=== PATIENT | male | born 1945 | race Caucasian/White ===

== ENCOUNTER 2020-02-09 08:23 | Outpatient (CLI) | payer MEDICARE, BC, SELFPAY ==
[2020-02-09 12:36] LABS: Anion Gap 8.4 mmol/L (3-11); BUN 18 mg/dL (7-18); CO2 26.6 mmol/L (21.0-32.0); CREATININE 1.07 mg/dL (0.70-1.30); Calcium 9.6 mg/dL (8.5-10.1); Chloride 103 mmol/L (98-107); Glucose 106 mg/dL (74-106); Potassium 3.6 mmol/L (3.5-5.1); Sodium 138 mmol/L (136-145)
== END 2020-02-09 08:43 ==
PROVIDERS: PCP Emergency Medicine; Visit Provider Emergency Medicine
DX: I10 Essential (primary) hypertension (principal)
CPT/HCPCS: 36415; 80048

== ENCOUNTER 2021-02-07 14:43 | Outpatient (REF) | payer MEDICARE, BC, SELFPAY ==
[2021-02-07 16:59] LABS: BUN 23 mg/dL (7-18); CREATININE 1.1 mg/dL (0.70-1.30); Calcium 9.7 mg/dL (8.5-10.1); Calculated LDL 131 mg/dL (<100); Chloride 104 mmol/L (98-107); Cholesterol 208 mg/dL (<200); Glucose 109 mg/dL (74-106); HDL Cholesterol 59 mg/dL (40-60); Potassium 3.3 mmol/L (3.5-5.1); Sodium 142 mmol/L (136-145); Triglyceride 92 mg/dL (<150)
== END 2021-02-07 14:44 | disposition home or self-care (01) ==
LOC: LBN 14:43
PROVIDERS: PCP Emergency Medicine; Visit Provider Emergency Medicine
DX: I10 Essential (primary) hypertension (principal)
CPT/HCPCS: 80048; 80061

== ENCOUNTER 2023-02-21 03:45 | Outpatient (CLI) | payer MEDICARE, BC, SELFPAY ==
[2023-02-21 13:13] LABS: CREATININE 1.1 mg/dL (0.70-1.30); Calculated LDL 105 mg/dL (<100); Cholesterol 180 mg/dL (<200); Estimated GFR 69.14 (mL/min/1.73m2); HDL Cholesterol 57 mg/dL (40-60); Potassium 3.2 mmol/L (3.5-5.1); Triglyceride 90 mg/dL (<150)
== END 2023-02-21 03:46 | disposition home or self-care (01) ==
LOC: LOS 03:45
PROVIDERS: PCP Nurse Practitioner Family; Visit Provider Nurse Practitioner Family
DX: E78.5 Hyperlipidemia, unspecified (principal); I10 Essential (primary) hypertension
CPT/HCPCS: 36415; 80061; 82565; 84132

== ENCOUNTER 2024-05-06 10:32 | Outpatient (CLI) | payer MEDICARE, BC, SELFPAY ==
[2024-05-06 11:29] LABS: CREATININE 1.2 mg/dL (0.70-1.30); Calculated LDL 107 mg/dL (<100); Cholesterol 188 mg/dL (<200); HDL Cholesterol 61 mg/dL (40-60); Potassium 3.8 mmol/L (3.5-5.1); Triglyceride 100 mg/dL (<150)
[2024-05-06 19:02] LABS: PSA, Screening 3.6 ng/mL (<=6.5)
== END 2024-05-06 10:33 | disposition home or self-care (01) ==
LOC: LBO 10:32
PROVIDERS: PCP Nurse Practitioner Family; Visit Provider Nurse Practitioner Family
DX: I10 Essential (primary) hypertension (principal); Z13.6 Encounter for screening for cardiovascular disorders; Z12.5 Encounter for screening for malignant neoplasm of prostate
CPT/HCPCS: 36415; 80061; 84153; 82565; 84132